=== PATIENT | female | born 1985 | race Caucasian/White ===

== ENCOUNTER 2017-07-02 12:21 | Outpatient (CLI) | payer OTHER, SELFPAY ==
[2017-07-02 12:43] VITALS: BP 155/86; PULSE 96; RESP 16; TEMP 36.5; O2SAT 100; BMI 39.2
[2017-07-02 13:20] VITALS: BP 149/82
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
== END 2017-07-02 17:15 | disposition home or self-care (01) ==
LOC: OBOUT 12:22 → OB 12:31
PROVIDERS: PCP Nurse Practitioner Obstetrics & Gynecology; Visit Provider Nurse Practitioner Obstetrics & Gynecology
DX: O26.93 Pregnancy related conditions, unspecified, third trimester (principal); Z3A.28 28 weeks gestation of pregnancy; V89.2XXA Person injured in unspecified motor-vehicle accident, traffic, initial encounter
CPT/HCPCS: 59025

== ENCOUNTER → 2017-08-23 11:10 | Outpatient (REF) | payer OTHER, SELFPAY | LOC: LAB 11:10 | PROVIDERS: Visit Provider Nurse Practitioner Obstetrics & Gynecology | DX: Z34.90 Encounter for supervision of normal pregnancy, unspecified, unspecified trimester (principal) | CPT/HCPCS: 86403 ==

== ENCOUNTER → 2017-09-01 11:14 | Outpatient (CLI) | payer OTHER, SELFPAY ==
[2017-09-01 11:40] LABS: Total Protein,Urine Random 10.6 mg/dL (0.0-11.9)
[2017-09-01 11:42] LABS: Total Protein 24 Hour,Urine 244 mg/24 hr (40-90); Total Volume,Urine 2300 mL (600-1600)
[2017-09-03 08:21] LABS: Collection Time,Urine 24 hours; Creatinine 24 Hour,Urine 1173 mg/24hr (630-2500); Creatinine,Urine Random 51 mg/dL (20-320)
== END ==
PROVIDERS: Visit Provider Nurse Practitioner Obstetrics & Gynecology
DX: Z34.90 Encounter for supervision of normal pregnancy, unspecified, unspecified trimester (principal); Z3A.36 36 weeks gestation of pregnancy
CPT/HCPCS: 82570; 82575; 84155

== ENCOUNTER 2017-09-15 00:28 | Inpatient (IN) ==
[2017-09-15 01:02] VITALS: BP 121/78
[2017-09-15 01:59] LABS: Basophils % 0.1 % (0.1-2.0); Eosinophils # 0.3 K/mm3 (0.0-0.4); Eosinophils % 2.3 % (0.1-12.0); Hematocrit 39.7 % (37.0-47.0); Hemoglobin 13.4 g/dL (12.2-16.2); Lymphocytes # 1.9 K/mm3 (0.7-4.5); Lymphocytes % 16.8 K/mm3 (10-50); Mean Corpuscular HGB Conc 33.7 g/dL (31.8-35.4); Mean Corpuscular Hemoglobin 29.9 pg (27.0-31.2); Mean Corpuscular Volume 88.7 fl (81-99); Mean Platelet Volume 11.4 fl (7.4-10.4); Monocytes # 0.6 K/mm3 (0.1-1.0); Monocytes % 5.2 % (1.7-9.3); Neutrophils # 8.4 K/mm3 (1.8-7.8); Neutrophils % 75.6 % (37.0-80.0); Platelet Count 205 K/mm3 (142-424); Red Blood Count 4.47 M/mm3 (4.20-5.40); Red Cell Distribution Width 13.3 % (11.5-17.5); White Blood Count 11.1 K/mm3 (4.8-10.8)
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
--- NOTE | 2017-09-15 07:55 | History & Physical Report ---
OB - H&P: HPI Antepartum - History of Present Illness Chief complaint: Contractions and spontaneous rupture of membranes - History of Present Criteria for establishing EDC:: LMP confirmed by 1st trimester US care: good care Ultrasounds: normal 1st trimester US, normal mid trimester US Obstetrical complications: gestational hypertension Medical complications: none Planning to breastfeed?: Yes [facility] History I have reviewed the patient's past medical history: Yes Medical History: Denies:: Cancer, Diabetes Mellitus Type 1, Diabetes Mellitus Type 2, Internal Pacemaker, MRSA Other Surgeries: No: Pacemaker Amputation: No Fractures: No - *Social History Educational Level: Completed High School Smoking Status: Never smoker Tobacco Type: cigarettes #Yrs smoked (if former smoker): 8 Alcohol Intake: never Substance Use Type: denies use Occupational Status: employed Housing: house Household Members: spouse - Psychiatric History Expresses thoughts of harming self/others: None Suicide Plan Description: No Plan *Family Hx:: Hypertension, Cancer Para: 0 Review of Systems - Review of Systems Review of systems:: pertinent systems reviewed and negative unless documented below Meds Home Medications Medication Instructions Recorded Confirmed Type magnesium oxide 500 mg capsule 500 mg PO ONCE cap 07/11/17 09/15/17 History Vit Calc,Iron,Folic [Kpn] 1 tab PO QDAY 09/15/17 09/15/17 History ferrous sulfate 325 mg (65 mg 325 mg PO QDAY 09/15/17 09/15/17 History iron) tablet,delayed release Allergies Allergy/AdvReac Type Severity Reaction Status Date / Time No Known Allergies Allergy Verified 09/13/17 10:39 OB - H&P: Exam - Physical Exam Vital signs: Temp Pulse Resp BP Pulse Ox 98.6 F 72 18 121/78 97 09/15/17 01:15 09/15/17 01:15 09/15/17 01:15 09/15/17 01:15 09/15/17 01:15 - Constitutional no acute distress OB - Results - Labs Labs: Short CBC 09/15/17 Range/Units 01:45 WBC 11.1 H (4.8-10.8) K/mm3 Hgb 13.4 (12.2-16.2) g/dL Hct 39.7 (37.0-47.0) % Plt Count 205 (142-424) K/mm3 OB - A/P Antepartum (1) Normal delivery Current visit: Yes Status: Acute - Additional Plan Plan: expectant management (She has spontaneous ruptured membranes and is 5 cm dilated. We will expect vaginal delivery.) Planning to breastfeed?: Yes
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
--- NOTE | 2017-09-15 13:39 | Procedure Note ---
- Delivery Note Delivery Date:: 09/15/17 Delivery Time:: 13:23 Anesthesia Type: Epidural Was labor medically induced?: No Infant delivered prior to 39 weeks?: No Justification for early elective delivery:: Active Labor Gender: Male at 1 minute: 8 at 5 minutes: 8 LAC or MLE?: LAC (She had a small posterior vaginal tear) Delivery Procedure:: She is a 32-year-old 1 para 0 who is 39+ weeks gestational age she came in in active labor with ruptured membranes. She was started on IV oxytocin and under labor epidural progressed to full dilation she pushed for a little over an hour and was quite fatigued so I elected to his a vacuum. The vacuum was placed in the direct OA position at station +4. Using long gentle pushes during contractions I was able to easily deliver the head. There were no pop offs. On deliver the head the anterior shoulder then delivered followed by the rest of the 's body atraumatically. The oropharynx and nasopharynx were bulb suctioned. The baby cried spontaneously. We allowed the cord to continue to pulsate for proximally 1 minute. The cord was then doubly clamped and cut. The infant was then handed off to nurses who assigned Apgars of 8 at 1 minute and 8 at 5 minutes. We then obtained cord blood as well as cord pH. Using gentle traction on the cord and countertraction on the fundus I was able to easily deliver the placenta intact. It had a normal three-vessel cord. She had a small posterior vaginal laceration that was repaired with interrupted 3-0 Vicryl Rapide suture. She plans to breast-feed. Her estimated blood loss was approximately 600 cc. Laceration:: vaginal Placental Delivery Description: Spontaneous
[2017-09-16 05:54] LABS: Hematocrit 33.6 % (37.0-47.0); Hemoglobin 11.2 g/dL (12.2-16.2)
--- NOTE | 2017-09-16 09:07 | Progress Note ---
Internal Medicine - PN: Subj *Date: 09/16/17 *Time: 09:06 Interval history: She continues to do well. She is eating and taking and ambulating. She is bottlefeeding. Her lochia is normal. She denies any pain. Exam Vital signs and Labs for Last 24 Hours: Temp Pulse Resp BP Pulse Ox 98.6 F 72 18 121/78 97 09/15/17 01:15 09/15/17 01:15 09/15/17 01:15 09/15/17 01:15 09/15/17 01:15 Laboratory Results - last 24 hr 09/15/17 13:30: Cord ABG pH 7.27 L 09/16/17 05:40: Hgb 11.2 L, Hct 33.6 L I & O for Last 24 hours: Intake & Output 09/13/17 09/14/17 09/15/17 09/16/17 11:59 11:59 11:59 11:59 Weight 234 lb - Constitutional no acute distress Assessment and Plan (1) Normal delivery Current visit: Yes Status: Acute Category: Medical Code(s): O80 - Encounter for full-term uncomplicated delivery; Z37.9 - Outcome of delivery, unspecified - Assessment and plan all Dx Assessment and Plan for all problems:: She is doing very well this morning. She continues to breast-feed. We will plan to send her home tomorrow.
--- NOTE | 2017-09-17 07:31 | Discharge Summary ---
General - General Admission date: 09/15/17 Discharge date: 09/17/17 HPI HPI: She is a 32-year-old 1 now para 1 who is 39 weeks gestational age. She came in in active labor with ruptured membranes. Hospital Course Hospital Course: She was augmented with oxytocin and delivered with the assistance of a vacuum a live born male child at 1:23 PM in the afternoon of September 15, 2017. The baby was a liveborn male child weighing 6 lbs. 13 oz. and 19 inches long. He had Apgars of 8 at 1 minute and 8 at 5 minutes. She has done well and has remained afebrile throughout her hospitalization. He is eating and drinking and ambulating. She is breast- feeding. Her lochia is normal. She has a positive blood, she is rubella immune and was group B streptococcus negative. Her department mgr is Dr. Dozier. She discharged home to follow-up with me in approximately 2 weeks time. She will continue with her over-the- counter analgesics and vitamins and iron. Objective Vital signs: Temp Pulse Resp BP Pulse Ox 98.6 F 72 18 121/78 97 09/15/17 01:15 09/15/17 01:15 09/17/17 04:54 09/15/17 01:15 09/15/17 01:15 no acute distress DS: Diagnosis - Discharge Diagnosis (1) Normal delivery Status: Acute Discharge Plan - Patient Discharge Instructions ACTIVITY: No heavy lifting DIET: continue same diet - Follow up Plan Disposition: Home, Self-Fpc Medications: Home Medications Medication Instructions Recorded Confirmed Type magnesium oxide 500 mg capsule 500 mg PO ONCE cap 07/11/17 09/15/17 History Vit Calc,Iron,Folic [Kpn] 1 tab PO DAILY 09/15/17 09/16/17 History ferrous sulfate 325 mg (65 mg 325 mg PO DAILY 09/15/17 09/16/17 History iron) tablet,delayed release Prescriptions/Medication Reconciliation: Continue magnesium oxide 500 mg capsule 500 mg PO ONCE cap Vit Calc,Iron,Folic [Kpn] 1 tab PO DAILY No Action ferrous sulfate 325 mg (65 mg iron) tablet,delayed release 325 mg PO DAILY
== END 2017-09-17 12:30 | disposition home or self-care (01) ==
LOC: OBOUT 00:28 → OB 00:34
PROVIDERS: ADMIT Nurse Practitioner Obstetrics & Gynecology; ATTEND Nurse Practitioner Obstetrics & Gynecology

== ENCOUNTER → 2019-10-31 10:59 | Outpatient (CLI) | payer BC, SELFPAY ==
[2019-10-31 12:24] LABS: Basophils # 0.1 K/mm3 (0-0.2); Basophils % 0.5 % (0.1-2.0); Eosinophils # 0.1 K/mm3 (0.0-0.4); Eosinophils % 0.5 % (0.1-12.0); Hematocrit 39.8 % (37.0-47.0); Hemoglobin 13.2 g/dL (12.2-16.2); Lymphocytes # 1.6 K/mm3 (0.7-4.5); Lymphocytes % 15.5 % (10-50); Mean Corpuscular HGB Conc 33.1 g/dL (31.8-35.4); Mean Corpuscular Hemoglobin 30.7 pg (27.0-31.2); Mean Corpuscular Volume 92.8 fl (81-99); Monocytes # 0.4 K/mm3 (0.1-1.0); Monocytes % 3.7 % (1.7-9.3); Neutrophils # 8.2 K/mm3 (1.8-7.8); Neutrophils % 79.8 % (37.0-80.0); Platelet Count 268 K/mm3 (142-424); Red Blood Count 4.28 M/mm3 (4.20-5.40); Red Cell Distribution Width 14.1 % (11.5-17.5); White Blood Count 10.3 K/mm3 (4.8-10.8)
[2019-11-01 09:09] LABS: HIV Screen 4th Generation wRfx Non Reactive (Non Reactive)
[2019-11-01 10:37] LABS: Hepatitis B Surface Antigen Negative (Negative); Hepatitis C Antibody <0.1 s/co ratio (0.0-0.9); Rapid Plasma Reagin Ab Titer Non Reactive (NonRea<1:1); Rubella Antibodies, IgG 1.06 index (Immune >0.99)
== END ==
PROVIDERS: Visit Provider Nurse Practitioner Obstetrics & Gynecology
DX: Z34.90 Encounter for supervision of normal pregnancy, unspecified, unspecified trimester (principal)
CPT/HCPCS: 36415; 85025; 86592; 86703; 86762; 86850; 87340; 87380; G0432

== ENCOUNTER → 2019-11-05 14:25 | Outpatient (CLI) | payer BC, SELFPAY ==
--- NOTE | 2019-11-05 14:25 | US_ITS ---
PROCEDURE: US OB TRANSVAGINAL CLINICAL INDICATION: for dates Early Ob ultrasound COMPARISON: TVP US TRANSVAGINAL PREG from 02/23/2017 FINDINGS: An intrauterine gestational sac is present with a pole with a crown-rump length of 1.71 cm correlating to gestational age of 8 weeks 2 days. heart tones are present with an FHR of 157 BPM. Yolk sac is noted. IMPRESSION: Live IUP at 8 weeks 2 days Estimated due date by Ultrasound is 06/14/2020 Dictated by: Mark Miranda MD 11/05/2019 18:06 Electronically signed by Mark Miranda MD in [place] 11/05/2019 18:06
== END ==
PROVIDERS: PCP Family Medicine; Visit Provider Nurse Practitioner Obstetrics & Gynecology
DX: Z34.90 Encounter for supervision of normal pregnancy, unspecified, unspecified trimester (principal)
CPT/HCPCS: 76817

== ENCOUNTER → 2020-01-20 11:21 | Outpatient (CLI) | payer BC, SELFPAY ==
[2020-01-23 01:07] LABS: AFP Value 33.4 ng/mL (.); DIA MoM 1.45 (.); DIA Value 192.21 pg/mL (.); DSR (Second Trimester) 1 IN 722 (.); Gest. Age on Collection Date 19.1 WEEKS (.); Maternal Age At EDD 32.9 yr (.); OSBR Risk 1 IN 10000 (.); Results Report (.); hCG MoM 1.22 (.); hCG Value 23062 mIU/mL (.); uE3 MoM 0.91 (.); uE3 Value 1.41 ng/mL (.)
[2020-01-23 11:20] LABS: Gestat. Age Based On EDD (.)
== END ==
PROVIDERS: Visit Provider Nurse Practitioner Obstetrics & Gynecology
DX: Z34.90 Encounter for supervision of normal pregnancy, unspecified, unspecified trimester (principal)
CPT/HCPCS: 36415; 82106

== ENCOUNTER → 2020-01-26 13:51 | Outpatient (CLI) | payer BC, SELFPAY ==
--- NOTE | 2020-01-26 13:51 | US_ITS ---
PROCEDURE: US OB /MATERNAL DETAIL CLINICAL INDICATION: 20 week gestation COMPARISON: US US OB TRANSVAGINAL from 11/05/2019 FINDINGS: There is a single live fetus present which is in cephalic presentation. heart body motion noted. The cervix is closed and measures 3.6 cm transabdominal. The placenta is anterior and grade 1. . Complete survey performed and was unremarkable on the submitted images as in PACS. No discrete anomalies identified on survey imaging by technologist. Active fetus. Three-vessel cord with satisfactory umbilical cord insertion. 4- chamber heart noted. Survey of brain & ventricles Unremarkable. Face and neck survey unremarkable. Diaphragm and chest views unremarkable. Abdomen: Both kidneys noted and unremarkable. Stomach noted and satisfactory. Spine: Survey of the spine satisfactory with no anomalies identified nor imaged. Both arms and legs noted. Amniotic Fluid: Adequate. Maternal adnexa: No significant findings. Measurements: Average ultrasound age 20weeks 2days. Gestational Age 20weeks 0days Estimated due date by ultrasound age 0106/12/2020. Estimated weight 350g BPD = 20weeks 4days OFD = 20weeks 2days HC = 19weeks 4days AC = 20weeks 4days FL = 20weeks 3days Growth Percentile= 67Percent% Heart Rate = 142bpm Cerebellum = 20weeks 2days Humerus = 19weeks 5days HC/AC is 1.1 CI is 0.81 FL/BPD is 0.69 FL/AC is 0.22 IMPRESSION: Live IUP at 20 weeks 2 days. All parameters correlate with no obvious anomalies. Please see above for detail Dictated by: Mark Miranda MD 01/27/2020 09:18 Mark Miranda MD in [facility] 01/27/2020 09:18
== END ==
PROVIDERS: PCP Family Medicine; Visit Provider Nurse Practitioner Obstetrics & Gynecology
DX: Z34.90 Encounter for supervision of normal pregnancy, unspecified, unspecified trimester (principal); Z3A.20 20 weeks gestation of pregnancy
CPT/HCPCS: 76811

== ENCOUNTER → 2020-02-12 15:38 | Outpatient (CLI) | payer BC, SELFPAY ==
--- NOTE | 2020-02-12 15:39 | MR_ITS ---
PROCEDURE: MR HEAD/BRAIN WO CON CLINICAL INDICATION: infalmmatory pseudotumor of both orbits LOSS OF VISION IN RIGHT EYE X3 WEEKS. COMPARISON: No exams were available for comparison TECHNIQUE: Routine multiplanar multi echo sequences are performed without gadolinium enhancement. FINDINGS: No midline shift mass effect intracranial hemorrhage hydrocephalus or acute infarction is evident. The cerebellopontine angles, cerebellum, and brainstem have an unremarkable appearance. No abnormal white matter signal intensity. The pituitary, optic chiasm, corpus callosum, and craniocervical junction have an unremarkable appearance. No mastoid effusion or sinus air-fluid level. IMPRESSION: Negative MRI of the brain without contrast. Dictated by: Mark Miranda MD 02/13/2020 10:04 Mark Miranda MD in [facility] 02/13/2020 10:04
--- NOTE | 2020-02-12 15:39 | MR_ITS ---
PROCEDURE: MR ORBITS FACE NECK WO CON CLINICAL INDICATION: infalmmatory pseudotumor of both orbits LOSS OF VISION RIGHT EYE X3 WEEKS COMPARISON: MR MR HEAD/BRAIN WO CON from 02/12/2020 TECHNIQUE: Routine multiplanar multi echo sequences are performed without gadolinium enhancement. FINDINGS: The orbits have an unremarkable appearance. The optic nerves appear symmetric. Unfortunately, gadolinium enhancement could not be performed due to patient's gravid state. The extraocular muscles have an unremarkable appearance. There is only minimal prominence of the belly of the right medial rectus compared to the left side. This may be related to the slice orientation and not redemonstrated on the coronal T1 weighted images. No intraconal masses are evident. The optic chiasm has an unremarkable appearance. The globes are unremarkable. IMPRESSION: Inflammatory mass is apparent. There is minimal asymmetry in the belly of the medial rectus muscle slightly larger on the right compared to the left. This is of questionable clinical significance. Exam is otherwise unremarkable. Dictated by: Mark Miranda MD 02/13/2020 10:13 Mark Miranda MD in [facility] 02/13/2020 10:13
== END ==
PROVIDERS: PCP Family Medicine; Visit Provider Nurse Practitioner Obstetrics & Gynecology
DX: H05.113 Granuloma of bilateral orbits (principal)
CPT/HCPCS: 70540; 70551

== ENCOUNTER → 2020-03-25 11:17 | Outpatient (CLI) | payer BC, SELFPAY ==
[2020-03-25 11:58] LABS: Glucose,Fasting 107 mg/dl (74-100)
[2020-03-25 14:07] LABS: Glucose 1 Hour 135 mg/dL (74-100)
== END ==
PROVIDERS: Visit Provider Nurse Practitioner Obstetrics & Gynecology
DX: Z34.90 Encounter for supervision of normal pregnancy, unspecified, unspecified trimester (principal)
CPT/HCPCS: 36415; 82951

== ENCOUNTER → 2020-03-27 07:52 | Outpatient (CLI) | payer BC, SELFPAY ==
[2020-03-27 09:38] LABS: Glucose,Fasting 112 mg/dl (74-100)
[2020-03-27 10:38] LABS: Glucose 1 Hour 151 mg/dL (74-100); Glucose 2 Hour 133 mg/dL (74-100)
[2020-03-27 11:45] LABS: Glucose 3 Hour 116 mg/dL (74-100)
== END ==
PROVIDERS: Visit Provider Nurse Practitioner Obstetrics & Gynecology
DX: Z34.90 Encounter for supervision of normal pregnancy, unspecified, unspecified trimester (principal)
CPT/HCPCS: 36415; 82951

== ENCOUNTER → 2020-05-13 13:50 | Outpatient (CLI) | payer BC, SELFPAY ==
[2020-05-13 13:51] LABS: Microscopic, Urine URINE MICROSCOPIC (MICROSCOPIC)
[2020-05-13 14:45] LABS: Appearance,Urine CLEAR (Clear); Bilirubin,Urine Negative (Negative); Blood, Urine Negative (Negative); Color,Urine YELLOW (Yellow); Glucose,Urine (UA) Negative (Negative); Ketones,Urine 1+ (Negative); Leukocyte Esterase,Urine Negative (Negative); Nitrate,Urine Negative (Negative); Protein,Urine Negative (Negative); Urobilinogen,Urine 0.2 EU/dl (0.2)
== END ==
PROVIDERS: Visit Provider Nurse Practitioner Obstetrics & Gynecology
DX: Z34.90 Encounter for supervision of normal pregnancy, unspecified, unspecified trimester (principal); Z3A.35 35 weeks gestation of pregnancy
CPT/HCPCS: 81001; 86403

== ENCOUNTER → 2020-05-20 15:25 | Outpatient (CLI) | payer BC, SELFPAY ==
[2020-05-20 15:26] LABS: Microscopic, Urine URINE MICROSCOPIC (MICROSCOPIC)
[2020-05-20 16:21] LABS: Appearance,Urine SL CLOUDY (Clear); Bilirubin,Urine Negative (Negative); Blood, Urine Negative (Negative); Color,Urine YELLOW (Yellow); Glucose,Urine (UA) Negative (Negative); Ketones,Urine 1+ (Negative); Leukocyte Esterase,Urine Negative (Negative); Nitrate,Urine Negative (Negative); PH,Urine 6.5 (5.0-8.5); Protein,Urine Negative (Negative); Urobilinogen,Urine 0.2 EU/dl (0.2)
[2020-05-20 16:43] LABS: Amorphous Sediment,Urine Trace /lpf
== END ==
PROVIDERS: Visit Provider Nurse Practitioner Obstetrics & Gynecology
DX: Z34.90 Encounter for supervision of normal pregnancy, unspecified, unspecified trimester (principal); Z3A.36 36 weeks gestation of pregnancy
CPT/HCPCS: 81001

== ENCOUNTER → 2020-05-21 12:48 | Outpatient (CLI) | payer BC, SELFPAY ==
--- NOTE | 2020-05-21 12:48 | US_ITS ---
PROCEDURE: US OB FOLLOW UP CLINICAL INDICATION: Check Position -possibly Breech COMPARISON: US US OB /MATERNAL DETAIL from 01/26/2020 FINDINGS: Measurements: Average ultrasound age 36weeks 4days. Gestational Age 36weeks 4days Estimated due date by ultrasound age 0106/14/2020. Estimated weight 3,011g BPD = 36weeks 6days OFD = 36 weeks 5 days HC = 36weeks AC = 37weeks FL = 36weeks 3days Growth Percentile= 58% Heart Rate = 149bpm HC/AC is 0.97 CI is 0.81 FL/BPD is 0.78 FL/AC is 0.21 Single live fetus is present which is in cephalic presentation. NIKO is 12 cm. Average ultrasound age is 36 weeks 4 days. Biophysical profile is 8 of 8. Estimated weight is 3011 g which is 58th percentile IMPRESSION: Live IUP in cephalic presentation at 36 weeks 4 days. Please see above for detail NIKO 12 cm. Biophysical profile 8 of 8 Dictated by: Mark Miranda MD 05/21/2020 17:22 Mark Miranda MD in [facility] 05/21/2020 17:22
== END ==
PROVIDERS: Visit Provider Nurse Practitioner Obstetrics & Gynecology
DX: O32.1XX0 Maternal care for breech presentation, not applicable or unspecified (principal)
CPT/HCPCS: 76816; 76819

== ENCOUNTER 2020-06-06 16:12 | Inpatient (IN) | payer BC, SELFPAY ==
[2020-06-06 16:35] VITALS: BP 130/79; PULSE 89; RESP 18; TEMP 37; O2SAT 96; BMI 42.7
[2020-06-06 17:21] LABS: Basophils % 0.1 % (0.1-2.0); Eosinophils # 0.1 K/mm3 (0.0-0.4); Eosinophils % 1.2 % (0.1-12.0); Hematocrit 41.7 % (37.0-47.0); Hemoglobin 13.6 g/dL (12.2-16.2); Lymphocytes # 1.7 K/mm3 (0.7-4.5); Lymphocytes % 16.6 % (10-50); Mean Corpuscular HGB Conc 32.6 g/dL (31.8-35.4); Mean Corpuscular Hemoglobin 29.3 pg (27.0-31.2); Mean Corpuscular Volume 89.9 fl (81-99); Mean Platelet Volume 11.2 fl (7.4-10.4); Monocytes # 0.4 K/mm3 (0.1-1.0); Monocytes % 4.4 % (1.7-9.3); Neutrophils # 7.8 K/mm3 (1.8-7.8); Neutrophils % 77.7 % (37.0-80.0); Platelet Count 197 K/mm3 (142-424); Red Blood Count 4.64 M/mm3 (4.20-5.40); Red Cell Distribution Width 14.7 % (11.5-17.5)
--- NOTE | 2020-06-06 17:36 | HMH.OBAPHP ---
OB - H&P: HPI Antepartum - History of Present Illness Chief complaint: Term , irregular contractions History of present illness: She is a 34-year-old 2 para 1 at 39 weeks gestational age. She was having regular contractions and pressure and as result of that we elected to induce her labor at term. We also felt that she measures up slightly larger than her dates so we wanted to deliver her before the baby gets too large. She also had slightly increased blood pressure at the last visit. - History of Present Criteria for establishing EDC:: LMP confirmed by 1st trimester US care: good care Ultrasounds: normal 1st trimester US, normal mid trimester US Obstetrical complications: gestational hypertension Medical complications: none - Labs Blood type: A (+) positive Rubella: immune RPR/VDRL: nonreactive GBS status: negative HBsAG: negative [facility] History I have reviewed the patient's past medical history: Yes Medical History: Denies:: Cancer, Diabetes Mellitus Type 1, Diabetes Mellitus Type 2, Internal Pacemaker, MRSA *Have you ever received a pneumonia vaccine?: No *Have you received a flu vaccine this season?: No Other Surgeries: Yes: No Previous Surgery. No: Pacemaker Amputation: No Fractures: No - *Social History Smoking Status: Former smoker Tobacco Type: cigarettes #Yrs smoked (if former smoker): 8 Alcohol Intake: never Alcohol Intake Frequency:: other Substance Use Type: denies use *Occupational Status:: employed Housing: house Household Members: spouse *Travel in the last 8 weeks: None Family Hx:: Hypertension, Cancer Review of Systems - Review of Systems Review of systems:: pertinent systems reviewed and negative unless documented below Meds Home Medications Medication Instructions Recorded Confirmed Type Vit Calc,Iron,Folic [Kpn] 1 tab PO DAILY 09/15/17 06/01/20 History aspirin 81 mg tablet,delayed 81 mg PO DAILY 01/20/20 06/01/20 History release ferrous sulfate 325 mg (65 mg 325 mg PO DAILY #30 tab 03/29/20 06/01/20 Rx iron) tablet prednisolone acetate 1 % eye drp OPHTHALMIC 03/29/20 06/01/20 History drops,suspension Allergies Allergy/AdvReac Type Severity Reaction Status Date / Time No Known Allergies Allergy Verified 06/01/20 10:55 OB - H&P: Exam - Constitutional no acute distress - Routine HEENT Exam Head: Present: normocephalic Eye: Present: EOMI, PERRL ENT: Present: mucous membranes moist - Routine Neck Exam Present: supple, full ROM - Routine Respiratory Exam Absent: accessory muscle use (good air entry bilaterally), respiratory distress, wheezes, crackles - Routine Cardiovascular Exam Present: RRR. Absent: murmur - Routine Abdominal Exam Present: soft, normoactive bowel sounds. Absent: tenderness, distended, guarding - Routine Rectal Exam Patient deferred: visual exam, digital exam - Routine Exam Patient deferred: external exam, groin exam, perineal exam - Routine Extremities Exam Present: full ROM. Absent: cyanosis, edema - Routine Skin Exam Present: intact. Absent: cyanosis - Routine Neurological Exam Present: alert, oriented X3 - Routine Psychiatric Exam Present: normal affect OB - Results - Labs Labs: Short CBC 06/06/20 Range/Units 17:00 WBC 10.0 (4.8-10.8) K/mm3 Hgb 13.6 (12.2-16.2) g/dL Hct 41.7 (37.0-47.0) % Plt Count 197 (142-424) K/mm3 OB - A/P Antepartum (1) Normal delivery Status: Acute (2) Gestational hypertension Status: Acute - Additional Plan Planning to breastfeed?: Yes Plan: induction Additional Information:: She had slightly increased blood pressure at her last visit. She measures up larger than her dates. She is term. As result of that we have elected to induce her labor. We have inserted Cervidil tonight. Her cervix is closed and 50% effaced. The presenting part is station -3.
[2020-06-06 17:43] LABS: Coronavirus 19 IgG Antibody Negative (Negative); Coronavirus 19 IgM Antibody Negative (Negative)
[2020-06-06 20:00] VITALS: BP 136/83; PULSE 83; RESP 17; TEMP 36.7; O2SAT 99
[2020-06-07 07:59] LABS: Microscopic, Urine URINE MICROSCOPIC (MICROSCOPIC)
[2020-06-07 08:12] LABS: Amphetamine/Metha Screen,Urine Negative ng/ml (<1000)
[2020-06-07 08:13] LABS: Appearance,Urine CLEAR (Clear); Barbiturates Screen,Urine Negative ng/ml (<200); Bilirubin,Urine Negative (Negative); Blood, Urine Negative (Negative); Color,Urine YELLOW (Yellow); Glucose,Urine (UA) Negative (Negative); Ketones,Urine Negative (Negative); Leukocyte Esterase,Urine Negative (Negative); Nitrate,Urine Negative (Negative); Protein,Urine Negative (Negative); Specific Gravity, Urine 1.025 (1.005-1.030); Urobilinogen,Urine 0.2 EU/dl (0.2)
[2020-06-07 08:14] LABS: Cannabinoid Screen,Urine Negative ng/ml (<50)
[2020-06-07 08:15] LABS: Cocaine Screen,Urine Negative ng/ml (<300); Methadone Screen,Urine Negative ng/ml (<300)
[2020-06-07 08:16] LABS: Phencyclidine Screen,Urine Negative ng/ml (<25)
[2020-06-07 08:17] LABS: Opiate Screen,Urine Negative ng/ml (<300)
[2020-06-07 08:19] LABS: Benzodiazepines Screen,Urine Negative ng/ml (<200)
[2020-06-07 08:34] LABS: RBC,Urine Occasional #/hpf (0-3)
--- NOTE | 2020-06-07 09:18 | HMH.LABNOT ---
Labor Note - Subjective: Date: 06/07/20 Time: 07:30 regular contraction - Objective: NST:: Reactive Contractions:: every 2-3 minutes Cervical Dilation:: 1-2 Effacement:: 50% Station: -3 Membranes: artificially ruptured - Fetus: Monitoring?: Yes monitoring type:: Internal and External Comment:: iupc inserted - Assessment: Labor progressing?: Yes Cephalopelvic disproportion?: No Patient Problems: All Active Problems Normal delivery (Acute) Gestational hypertension (Acute) (Acute) - Plan: Anesthesia for epidural?: No Continue to labor down?: Yes Plan for ?: No Continue to monitor?: Yes Start pushing?: No
[2020-06-07 09:21] VITALS: BP 137/70; PULSE 65; RESP 20; TEMP 36.8; O2SAT 96
--- NOTE | 2020-06-07 09:21 | P.PN_ITS ---
[facility] Anesthesia Checklist - Patient Identification Patient Identification: Arm Band - Structural Data Admitted From: Home Planned Operative Procedure/s: labor epidural Consent for Planned Operative Procedure(s) Verified: Yes Verified Documents: Surgical Consent, History and Physical - NPO Status Verified Time NPO: 00:00 - Additional verifications Anesthesia Reactions: No - Airway Assessment C-Spine Mobility Assessed: Yes TMJ Mobility Assessed: Yes Dentition: Good Dentition - Neurological Assessment Level of Consciousness: Awake, Alert - Anesthesia Plan Anesthesia Risk discussed: Yes Anesthesia Plan: Verified ASA Class: III Anesthesia Type: Epidural [facility] History I have reviewed the patient's past medical history: Yes Medical History: Denies:: Cancer, Diabetes Mellitus Type 1, Diabetes Mellitus Type 2, Internal Pacemaker, MRSA *Have you ever received a pneumonia vaccine?: No *Have you received a flu vaccine this season?: No Anesthesia experience/problems:: nac Other Surgeries: Yes: No Previous Surgery. No: , Pacemaker Amputation: No Fractures: No - *Social History Smoking Status: Former smoker Tobacco Type: cigarettes #Yrs smoked (if former smoker): 8 Alcohol Intake: never Alcohol Intake Frequency:: other Substance Use Type: denies use *Occupational Status:: unemployed Housing: house Household Members: spouse *Travel in the last 8 weeks: None Family Hx:: Hypertension, Cancer Para: 1
[2020-06-07 12:17] VITALS: BP 126/78; PULSE 64; RESP 18; TEMP 37.1; O2SAT 98
--- NOTE | 2020-06-07 12:24 | HMH.LABNOT ---
Labor Note - Subjective: Date: 06/07/20 Time: 12:24 regular contraction - Objective: NST:: Reactive Contractions:: every 2-3 minutes Cervical Dilation:: 4 Effacement:: 90% Station: -2 Membranes: artificially ruptured - Fetus: Monitoring?: Yes monitoring type:: Internal and External - Assessment: Labor progressing?: Yes Cephalopelvic disproportion?: No Patient Problems: All Active Problems Normal delivery (Acute) Gestational hypertension (Acute) (Acute) - Plan: Anesthesia for epidural?: Yes Continue to labor down?: Yes Plan for ?: No Continue to monitor?: Yes Start pushing?: No
--- NOTE | 2020-06-07 14:26 | HMH.LABNOT ---
Labor Note - Subjective: Date: 06/07/20 Time: 14:26 regular contraction - Objective: NST:: Reactive Contractions:: every 2-3 minutes Cervical Dilation:: 8 Effacement:: 90% Station: 0 Membranes: artificially ruptured - Fetus: Monitoring?: Yes monitoring type:: Internal - Assessment: Labor progressing?: Yes Cephalopelvic disproportion?: No Patient Problems: All Active Problems Normal delivery (Acute) Gestational hypertension (Acute) (Acute) - Plan: Anesthesia for epidural?: Yes Continue to labor down?: Yes Plan for ?: No Continue to monitor?: Yes Start pushing?: No
[2020-06-07 16:41] VITALS: BP 132/71; PULSE 85; RESP 20; TEMP 37.1; O2SAT 98
--- NOTE | 2020-06-07 17:32 | HMH.LABNOT ---
Labor Note - Subjective: Date: 06/07/20 Time: 17:32 regular contraction - Objective: NST:: Reactive Contractions:: every 2-3 minutes Cervical Dilation:: 9-10 Effacement:: 100% Station: +1 Membranes: artificially ruptured - Fetus: Monitoring?: Yes monitoring type:: Internal - Assessment: Labor progressing?: Yes Cephalopelvic disproportion?: No Patient Problems: All Active Problems Normal delivery (Acute) Gestational hypertension (Acute) (Acute) - Plan: Anesthesia for epidural?: Yes Continue to labor down?: Yes Plan for ?: No Continue to monitor?: Yes Start pushing?: Yes Continue pushing?: Yes Additional information:: She is pushing and doing very well. We will plan a vaginal delivery.
--- NOTE | 2020-06-07 17:51 | HMH.DN ---
- Delivery Note Delivery Date:: 06/07/20 Delivery Time:: 15:39 Anesthesia Type: Epidural Was labor medically induced?: Yes Induction method: per misoprostol protocol Infant delivered prior to 39 weeks?: No Justification for early elective delivery:: Benign Hypertension Gender: Male at 1 minute: 9 at 5 minutes: 9 LAC or MLE?: LAC Delivery Procedure:: She is a 34-year-old 2 para 1 who was 39 weeks gestational age. She had slightly increased blood pressure and as result of that we elected to induce her labor at term. She was placed on Cervidil intravaginally the night prior to delivery. She then was started on IV oxytocin on the morning of delivery day and had her membranes ruptured. Under labor epidural she progressed to full dilation and delivered spontaneously a liveborn male child at 5:39 PM in the evening of June 07, 2020. On deliver the head there was a loose nuchal cord which was easily reduced. This was followed by the anterior shoulder and the rest of the 's body atraumatically. The oropharynx and nasopharynx were bulb suction. The baby was vigorous and we allowed the cord to continue to pulsate for approximately 1 minute. The cord was then doubly clamped and cut and the was placed on the mother's abdomen for further care. The nurses assigned Apgars of 9 at 1 minute and 9 at 5 minutes. We then obtained cord blood as well as cord pH. She received IV oxytocin using gentle traction on the cord and countertraction on the fundus I was able to easily deliver the placenta 3 minutes after delivery. He had a normal three-vessel cord. She had a small first-degree perineal laceration that was repaired with interrupted 3-0 Vicryl Rapide suture. She has a positive blood, she is rubella immune and was group B streptococcus negative. She plans to breast-feed. Her assembler dry cell and battery is Dr. Whitman. Estimated blood loss was approximately 250 cc. Laceration:: vaginal Placental Delivery Description: Spontaneous
[2020-06-08 07:51] LABS: Hematocrit 39.2 % (37.0-47.0); Hemoglobin 12.8 g/dL (12.2-16.2)
[2020-06-08 07:58] VITALS: BP 133/84; PULSE 90; RESP 18; TEMP 36.6; O2SAT 97
--- NOTE | 2020-06-08 08:18 | P.PN_ITS ---
Internal Medicine - PN: Subj *Date: 06/08/20 *Time: 08:18 Interval history: She is doing very well this morning. She is 1 day post from vaginal delivery. Her lochia is normal. Her pain is well controlled. She is breast- feeding. Exam Vital signs and Labs for Last 24 Hours: Temp Pulse Resp BP Pulse Ox 98.7 F 85 20 132/71 98 06/07/20 16:41 06/07/20 16:41 06/07/20 16:41 06/07/20 16:41 06/07/20 16:41 Laboratory Results - last 24 hr 06/06/20 18:25: Urine Opiates Screen Negative, Urine Methadone Screen Negative, Ur Barbituates Screen Negative, Ur Phencyclidine Scrn Negative, Ur Amphetamines Screen Negative, U Benzodiazepines Scrn Negative, Urine Cocaine Screen Negative, U Marijuana (THC) Screen Negative 06/06/20 18:25: Urine RBC Occasional, Urine WBC 3-5, Ur Squamous Epith Cells 3-5 06/07/20 17:57: Cord ABG pH 7.30 L 06/08/20 06:54: Hgb 12.8, Hct 39.2 I & O for Last 24 hours: Intake & Output 06/05/20 06/06/20 06/07/20 06/08/20 11:59 11:59 11:59 11:59 Weight 257 lb - Constitutional no acute distress - *Routine HEENT Exam Head: Present: normocephalic Eye: Present: EOMI, PERRL ENT: Present: mucous membranes moist Assessment and Plan (1) Normal delivery Status: Acute Category: Medical Code(s): O80 - Encounter for full-term uncomplicated delivery (2) Gestational hypertension Status: Acute Category: Medical Code(s): O13.9 - Gestational [- induced] hypertension without significant proteinuria, unspecified trimester - Assessment and plan all Dx Assessment and Plan for all problems:: She is doing very well this morning. We will plan to send her home tomorrow.
[2020-06-08 16:13] VITALS: BP 143/85; PULSE 78; RESP 18; TEMP 36.8; O2SAT 100
--- NOTE | 2020-06-08 17:11 | HMH.OBDCSM ---
General - General Admission date:: 06/06/20 Discharge date: 06/09/20 HPI - History of Present Illness History of present illness: She is a 34-year-old 2 para 1 at 39 weeks gestational age. She had some slight increase in her blood pressure there is also that she was admitted for induction of labor. Hospital Course Hospital Course: On the evening prior to delivery she was started on Cervidil. The following morning she had her membranes ruptured and was started on IV oxytocin. She progressed under labor epidural to full dilation and delivered spontaneously a liveborn male child at 5:39 PM on the evening of June 07, 2020. She has done well and has remained afebrile throughout her hospitalization. She is eating and drinking and ambulating. She is breast-feeding. Her lochia is normal. She has a positive blood, she is rubella immune and was group B streptococcus negative. Her surveillance camera technician is Dr. Whitman. She is discharged home to follow-up with me in approximately 2 weeks time. She will continue with her vitamins and iron. She was given the usual instructions with respect to limiting her activity, driving and sexual activity. Her condition on discharge is stable and improved. Objective Vital signs: Temp Pulse Resp BP Pulse Ox 97.8 F 90 18 133/84 97 06/08/20 07:58 06/08/20 07:58 06/08/20 07:58 06/08/20 07:58 06/08/20 07:58 no acute distress - *Routine Neck Exam Present: supple Results Labs on day of discharge: Labs from last 24 hours 06/08/20 06/07/20 06:54 17:57 Hgb 12.8 Hct 39.2 Cord ABG pH 7.30 L DS: Diagnosis - Discharge Diagnosis (1) Normal delivery Status: Acute (2) Gestational hypertension Status: Acute Discharge Plan - Patient Discharge Instructions ACTIVITY: No heavy lifting DIET: continue same diet - Follow up Plan Disposition: Home, Self-Assisted Medications: Home Medications Medication Instructions Recorded Confirmed Type Vit Calc,Iron,Folic [Kpn] 1 tab PO DAILY 09/15/17 06/06/20 History aspirin 81 mg tablet,delayed 81 mg PO DAILY 01/20/20 06/06/20 History release Ferrous Sulfate 325 mg PO DAILY 06/06/20 06/06/20 History Prescriptions/Medication Reconciliation: Continued aspirin 81 mg tablet,delayed release 81 mg PO DAILY Vit Calc,Iron,Folic [Kpn] 1 tab PO DAILY Ferrous Sulfate 325 mg PO DAILY - Problem Reconciliation Problems Reviewed?: Yes
[2020-06-09 08:22] VITALS: BP 125/72; PULSE 75; RESP 18; TEMP 36.6; O2SAT 99
--- NOTE | 2020-06-09 10:59 | P.PN_ITS ---
Internal Medicine - PN: Subj *Date: 06/09/20 *Time: 10:59 Interval history: PPD #2 Discharge arranged for today No unusual complaints Tolerating regular diet Ambulating and voiding without difficulty Exam Vital signs and Labs for Last 24 Hours: Temp Pulse Resp BP Pulse Ox 98.2 F 78 18 143/85 H 100 06/08/20 16:13 06/08/20 16:13 06/08/20 16:13 06/08/20 16:13 06/08/20 16:13 I & O for Last 24 hours: Intake & Output 06/06/20 06/07/20 06/08/20 06/09/20 11:59 11:59 11:59 11:59 Weight 257 lb Narrative: CONSTITUTIONAL: no acute distress HEENT: mucous membranes moist PULMONARY: breathing unlabored without audible wheezes CV: no tachycardia or visible JVD; normal LE peripheral pulses ABD: soft, NT/ND, no guarding : fundus firm at/below umbilicus SKIN: no visible rash or lesions EXT: 1+ edema LEs NEURO: alert/oriented, no altered mental status PSYCH: appropriate mood and demeanor without visible anxiety/depression Assessment and Plan (1) Normal delivery Status: Acute Category: Medical Code(s): O80 - Encounter for full-term uncomplicated delivery (2) Gestational hypertension Status: Acute Category: Medical Code(s): O13.9 - Gestational [- induced] hypertension without significant proteinuria, unspecified trimester - Assessment and plan all Dx Assessment and Plan for all problems:: day #2 Discharge home, per previous arrangements Continue PNV with FeSO4 Follow up with Dr. Bahena as scheduled
== END 2020-06-09 16:20 | disposition home or self-care (01) | DRG 807 ==
PROVIDERS: Admitting Provider Nurse Practitioner Obstetrics & Gynecology; PCP Family Medicine; Visit Provider Nurse Practitioner Obstetrics & Gynecology
DX: O13.3 Gestational [pregnancy-induced] hypertension without significant proteinuria, third trimester (principal); Z37.0 Single live birth; O69.81X0 Labor and delivery complicated by cord around neck, without compression, not applicable or unspecified; Z3A.39 39 weeks gestation of pregnancy; O70.0 First degree perineal laceration during delivery
CPT/HCPCS: 59409; 59025; 80305; 81001; 82800; 85014; 85018; 85025; 86328; 86850; 90686; 94761; C1758

== ENCOUNTER → 2021-09-13 09:37 | Outpatient (CLI) | payer BC, SELFPAY ==
--- NOTE | 2021-09-13 09:45 | MR_ITS ---
FINAL REPORT CLINICAL HISTORY: VISUAL FIELD LOSS. LOSS OF VISION STARTED IN 2019. PRESSURE AND SWELLING BEHIND EYES. NO INJURY OR TRAUMA. 21ML PROHANCE GIVEN. COMPARISON: February 12, 2020 FINDINGS: Multiplanar MR imaging of the brain was performed without and with contrast. There is no evidence of intracranial hemorrhage or mass. No abnormal extra-axial fluid collection is seen. The ventricular size is within normal limits. There is no evidence of shift of the midline structures. The posterior fossa and brainstem have an unremarkable appearance. No area of abnormal restricted diffusion is identified. No abnormal contrast enhancement is seen. Normal major vessel vascular flow voids are noted. The globes are intact. The right medial rectus is mildly enlarged as compared to the left which is nonspecific but similar to the prior exam. IMPRESSION: No acute intracranial abnormality identified. Mild nonspecific enlargement of the right medial rectus, similar to prior. This can be seen with orbital pseudotumor. Reviewed, Interpreted and Dictated by Myke Curran III, MD Transcribed by Sánchez Harris Authenticated by Myke Curran III, MD on 09/13/2021 11:29:56 AM [facility]
== END ==
PROVIDERS: PCP Family Medicine; Visit Provider Ophthalmology
DX: H53.40 Unspecified visual field defects (principal)
CPT/HCPCS: 70553; A9576